=== PATIENT | female | born 1950 | race Asian ===

== ENCOUNTER → 2020-05-23 09:11 | Outpatient (BNVA) | payer MEDICARE, SELFPAY ==
--- NOTE | 2020-06-06 10:08 | P.EN_ITS ---
Event Note Date of Service: 06/06/20 Event Note: talked to patient about her CT scan - note of hernia with bowel lo ops she says she cannot have her surgery until September of this year because of work she says she will schedule for an office visit in August to discuss the procedure
== END ==
PROVIDERS: PCP Internal Medicine; Visit Provider Surgery
DX: K43.9 Ventral hernia without obstruction or gangrene (principal)
CPT/HCPCS: 99202

== ENCOUNTER 2020-06-04 08:16 | Outpatient (REF) | payer MEDICARE, SELFPAY ==
--- NOTE | 2020-06-04 08:18 | CT_ITS ---
EXAMINATION: CT ABDOMEN AND PELVIS WITHOUT CONTRAST CLINICAL INFORMATION: Omental hernia without obstruction or gangrene. COMPARISON: CT abdomen without IV contrast 08/18/2011. TECHNIQUE: Multidetector volumetric imaging was performed from the superior aspect of the liver through the pubic symphysis. Sagittal and coronal reformatted images were obtained on the technologist's workstation. This CT examination was performed using dose optimization techniques as appropriate, variously including the following: *Automated exposure control *Adjustment of mA and/or kV according to patient size (this includes techniques or standardized protocols for targeted exams where dose is matched to indication/reason for exam; i.e. extremities or head) *Use of iterative reconstruction technique DLP: 587 mGy-cm. FINDINGS: LUNG BASES: Minimal atelectatic changes seen in the right middle lobe. The lung bases are clear. The heart size is normal. LIVER, GALLBLADDER, AND BILIARY TREE: The liver is normal in size, shape, and attenuation. No focal hepatic lesion or biliary ductal dilatation is present. The gallbladder is unremarkable with no evidence of radiopaque gallstones, gallbladder wall thickening, or obvious pericholecystic inflammatory changes. PANCREAS: Unremarkable. SPLEEN: Unremarkable. ADRENAL GLANDS: Unremarkable. KIDNEYS AND URETERS: The kidneys are normal in size, shape, and attenuation. No hydronephrosis, hydroureter, or calculi seen. There is bilateral perinephric stranding. BLADDER: Unremarkable. GASTROINTESTINAL TRACT: There is moderate scattered stool seen throughout the colon without significant distention. The small bowel loops are normal caliber. Appendix is visualized and is normal caliber. No inflammatory changes seen in the abdomen. The stomach is distended with recently ingested food prior. ABDOMINAL WALL: There is a large ventral epigastric hernia with a loop of transverse colon and peritoneal fat within. The neck is 7.12 cm wide. LYMPH NODES: Normal. VASCULAR: Unremarkable. PELVIC VISCERA: Unremarkable. OSSEOUS STRUCTURES: Unremarkable. CT/CT abdomen pelvis wo con IMPRESSION: Large ventral epigastric abdominal wall hernia with a loop of transverse colon and peritoneal fat within. No obstruction. No change in the ventral hernia since 08/26/2011 CT abdomen exam. The rest of the abdominal ultrasound is unremarkable.
== END 2020-06-04 08:17 | disposition home or self-care (01) ==
LOC: HO.CT 08:16
PROVIDERS: PCP Internal Medicine; Visit Provider Surgery
DX: K43.9 Ventral hernia without obstruction or gangrene (principal)
CPT/HCPCS: 74176

== ENCOUNTER → 2020-10-07 09:54 | Outpatient (BNVA) | payer MEDICARE, SELFPAY | PROVIDERS: PCP Internal Medicine; Visit Provider Surgery | DX: K43.9 Ventral hernia without obstruction or gangrene (principal) | CPT/HCPCS: 99212 ==

== ENCOUNTER 2020-10-25 09:51 | Inpatient (IN) | payer MEDICARE, SELFPAY ==
[2020-10-18 19:09] VITALS: BMI 31.8
--- NOTE | 2020-10-23 11:57 | HO.ANESPROP2 ---
Documented by User: Noemi Vanessa 10/23/20 11:59 HPI - Anesthesia Eval Consult details Narrative: 70yo F for Large Ventral Hernia Repair PMFSH Active Problems Active Problems: All Active Problems (Updated 10/18/20 @ 19:07 by Ning Dc RN) High BMI (Acute) Hyperlipidemia (Acute) Borderline diabetes (Acute) Ventral hernia (Acute) Hypertension (Acute) Past Medical History Medical History Borderline diabetes Diabetes High BMI Hyperlipidemia Hypertension Ventral hernia Surgical History Surgical History History of dilatation and curettage (09/2009) History of ventral hernia repair (05/2010) Social History Social History Alcohol intake: never Use of substances other than those prescribed or required for medical reasons: No Are you DNR?: No Advance Directives: Yes Advance Directives Information Provided: Yes Advance Directives on File: No (will bring copy) Advance Directives Date on File: 07/02/15 Meds Allergies Allergy/AdvReac Type Severity Reaction Status Date / Time No Known Allergies Allergy Verified 10/25/20 09:46 Home Medications Medication Instructions Recorded Confirmed Last Taken Type blood sugar diagnostic #10 ea 05/23/20 10/18/20 Unknown History blood-glucose meter #1 ea 05/23/20 10/18/20 Unknown History hydrochlorothiazide 25 mg tablet 25 mg PO DAILY 05/23/20 10/18/20 Unknown History lancets 33 gauge #100 ea 05/23/20 10/18/20 Unknown History losartan 100 mg tablet 100 mg PO DAILY 05/23/20 10/18/20 Unknown History metformin 1,000 mg tablet 1,000 mg PO BID 05/23/20 10/18/20 Unknown History pravastatin 40 mg tablet 40 mg PO DAILY 05/23/20 10/18/20 Unknown History Exam Exam Date and Time: October 23, 2020 1157 Height,Weight and Vital Signs: Height 5 ft 3 in Weight 81.647 kg Narrative Narrative: CT abdomen pelvis wo con 05/2020 IMPRESSION: Large ventral epigastric abdominal wall hernia with a loop of transverse colon and peritoneal fat within. No obstruction. No change in the ventral hernia since 08/26/2011 CT abdomen exam. Assessment and Plan Assessment Anesthesia Assessment: Chart Reviewed Documented by User: Palmira Orozco 10/25/20 09:53 PMFSH Past Medical History Medical History Borderline diabetes Diabetes High BMI Hyperlipidemia Hypertension Ventral hernia Surgical History Surgical History History of dilatation and curettage (09/2009) History of ventral hernia repair (05/2010) Social History Social History Alcohol intake: never Use of substances other than those prescribed or required for medical reasons: No Are you DNR?: No Advance Directives: Yes Advance Directives Information Provided: Yes Advance Directives on File: No (will bring copy) Advance Directives Date on File: 07/02/15 Meds Allergies Allergy/AdvReac Type Severity Reaction Status Date / Time No Known Allergies Allergy Verified 10/25/20 09:46 Home Medications Medication Instructions Recorded Confirmed Last Taken Type blood sugar diagnostic #10 ea 05/23/20 10/18/20 Unknown History blood-glucose meter #1 ea 05/23/20 10/18/20 Unknown History hydrochlorothiazide 25 mg tablet 25 mg PO DAILY 05/23/20 10/18/20 Unknown History lancets 33 gauge #100 ea 05/23/20 10/18/20 Unknown History losartan 100 mg tablet 100 mg PO DAILY 05/23/20 10/18/20 Unknown History metformin 1,000 mg tablet 1,000 mg PO BID 05/23/20 10/18/20 Unknown History pravastatin 40 mg tablet 40 mg PO DAILY 05/23/20 10/18/20 Unknown History Exam Airway Mallampati Class: II TM Dist: >3cm Neck ROM: Full
[2020-10-25] VITALS (18 sets, daily range): BP systolic 101–158; BP diastolic 60–87; PULSE 71–98; RESP 14–24; TEMP 36.4–37.1; O2SAT 90–100
--- NOTE | 2020-10-25 | ECG_ITS ---
Test Reason : DM HTN PREOP Blood Pressure : / mmHG Vent. Rate : 077 BPM Atrial Rate : 077 BPM P-R Int : 178 ms QRS Dur : 122 ms QT Int : 406 ms P-R-T Axes : 019 071 020 degrees QTc Int : 459 ms Normal sinus rhythm Right bundle branch block Abnormal ECG No previous ECGs available Referred By: Noemi Mendez Electronically Signed By:BLOSSOM BENTLEY
--- NOTE | 2020-10-25 10:03 | MHC.SHP ---
Pre-Procedural Eval Section B Chief Complaint: S/P Large Ventral Hernia Repair Allergies: Allergies Allergy/AdvReac Type Severity Reaction Status Date / Time No Known Allergies Allergy Verified 10/25/20 09:46 Plan I have reviewed the history and physical and performed a pertinent physical examination on my patient. No changes have occurred unless specified.
[2020-10-25 10:07] LABS: Hematocrit 37.5 % (37-47); Hemoglobin 12.6 g/dl (12.0-16.0); Mean Corpuscular HGB Conc 33.6 g/dl (31.0-35.0); Mean Corpuscular Hemoglobin 28.1 pg (27.0-33.0); Mean Corpuscular Volume 83.5 fL (80-98); Mean Platelet Volume 10.2 fL (9.4-12.3); Platelet Count 279 X10*3/uL (160-400); Red Blood Count 4.49 X10*6/uL (4.20-5.50); Red Cell Distribution Width 12.7 % (11.0-16.0); White Blood Count 9.3 X10*3/uL (4.8-10.8)
[2020-10-25 10:08] LABS: COVID-19 Test Negative (Negative)
[2020-10-25 10:11] LABS: Glucose, Whole Blood 146 mg/dL (60-115)
[2020-10-25] MEDS: Lactated Ringers 1,000 ML 100 ML IVCONT (10:19)
[2020-10-25 10:29] LABS: Anion Gap 14 (12-20); Blood Urea Nitrogen 11 mg/dL (9-16); Calcium 9.1 mg/dL (8.4-10.2); Carbon Dioxide 24 mmol/L (22-29); Chloride 106 mmol/L (96-108); Creatinine Clr Calc Pharmacy 69.6; Estimated Glomerular Filt Rate > 60; Glucose Fasting 145 mg/dL (60-99); Potassium 4.2 mmol/L (3.3-5.1); Sodium 140 mmol/L (135-145)
--- NOTE | 2020-10-25 10:30 | PC.NURSE ---
PER ANESTHESIA, NO LAB RESULTS NEEDED BEFORE GOING TO OR.
--- NOTE | 2020-10-25 12:05 | P.BOP_ITS ---
Brief Operative Note Date of Service: 10/25/20 Pre-op diagnosis: large ventral hernia Post-op diagnosis: same Procedure: repair of large ventral hernia with Ventrio mesh Implants: mesh Surgeon: Sanya Mai MD Anesthesia: GETA Was an Certified Physician'S Assistant used for this Procedure?: No Estimated blood loss (mL): 30 Pathology: other (hernia sac) Condition: stable Disposition: PACU
--- NOTE | 2020-10-25 12:07 | P.OP_ITS ---
Operative Note Operative Note Date of Service: 10/25/20 Narrative: Preop diagnosis: Large ventral hernia Postop diagnosis: Large ventral hernia Procedure: Repair of a large ventral hernia with Ventrio mesh Surgeon: Sanya Abdullahi sales assistant entertainment and media The patient was a 70-year-old female with a large ventral hernia. Her CAT scan had shown a large hernia with a defect measuring about over 7 cm, with bowel loops involved. She was morbidly obese and before this had plan to lose some weight prior to repair. However she was unsuccessful with doing so and because of the symptomatic hernia, she wanted to proceed with repair. She understood the technique of repair with mesh. She was aware of the risks, benefits, and alternatives She was brought to the operating room placed supine the table under general anesthesia via endotracheal tube. A surgical time-out was done. The abdomen was prepped and draped in the usual sterile fashion. I made a 7 cm incision on the skin and the midline using blade 10. This was carried down through the full- thickness of skin and subcutaneous fat using electrocautery. Please note the patient was morbidly so we e had to dissect through a thick amount of subcutaneous fat until I was able to visualize the hernia. I therefore continued to dissect the hernia sac off of the rest of the thick subcutaneous layer with a combination of blunt dissection as well as with electrocautery. I proceeded to continue dissection carefully all around the hernia until I was able to reach to fascia. I then completely the entire sac off of the thick subcutaneous layer. This allowed good exposure of the entire hernia. There was an opening on the hernia sac superiorly so I able to find the edge on this and applied a Leticia clamp. I used the fascial edges a guide to the this hernia with electrocautery as well as Metzenbaum scissors. The periodically examined the abdominal contents to make sure that there were no bowel loops near the fascial defect as we divided the sac off of this. In the anterior aspect of the hernia sac, there was note of adherent transverse colon and some small bowel loops. I had to carefully do lysis of adhesions. There was omentum stuck on the hernia sac which I had to separate as well. This part of the procedure took sometime before I was able to completely release all the bowel loops from the sac. I was able to therefore excise the hernia sac and this was sent as specimen. I applied Leticia clamps on 4 quadrants of the fascial defect. I continue to therefore define the fascial edges and examined circumferentially to make sure that there were no other significant adhesions. Inferiorly, however we had noted significant adherent omentum and some small bowel loops and I had to do careful dissection using the Metzenbaum scissors to further clear enough margins. This part of the dissection took some period of time before I was able to clear wide margins around the fascial defect in preparation for placement of the mesh. I also confirmed hemo stasis and once this was confirmed, I prepared for the placement of the mesh. I measured the fascial defect and this was about 7 cm longitudinally x 6 cm . I therefore selected a 17 x 13 cm Ventrio mesh. I positioned this flat under the fascial defect. There was note of wide overlaps around the margins. I made sure that there was no bowel loop between the mesh and the fascial. I then used the Optifix fixation device to secure the Prolene side of the mesh to the peritoneal side in 4 quadrants. This secured the mesh around the defect. Then I proceeded to apply a circumferential row of tacks with the OptiFix fixation device and a 2nd inner row, making sure that there were no significant gaps that would allow bowel loops to creep through. After this was achieved, I re- examined the area and the entire mesh appeared to be secure and flat and well positioned. I copiously irrigated and observed for hemostasis. Once hemostasis was ensured, I proceeded to then close the fascia with a running Dexon 1 stitch. I reapposed the deep subcutaneous layer with Dexon 3-0 sutures. Skin closure was achieved with skin sachin. I infiltrated the area around the incision with Marcaine 0.5% for postop analgesia. Dressings were applied and the procedure was completed The patient tolerated the procedure well. There were no complications noted. Initial and final counts of sponges and instruments were correct. Estimated blood loss was about 30 cc. The patient was extubated without difficulty and transferred to the recovery room with stable vital signs.
[2020-10-25] MEDS: fentaNYL citrate/PF 100 MCG/2 ML VIAL 50 MCG IVPUSH ×2 (12:14→12:30)
[2020-10-25] MEDS: oxyCODONE HCl Immed Release 5 MG TABLET 10 MG PO (12:43)
[2020-10-25] MEDS: Lactated Ringers 1,000 ML 60 ML IVCONT (16:08)
--- NOTE | 2020-10-25 16:09 | PM.EVENT ---
Event Note Date of Service: 10/25/20 Event Note: Seen postop She says she is ?comfortable? Appears to have good pain control Stable vital signs Abdomen soft Dressings dry Continue pain management Seems to be doing well postop Daughter Vi updated by phone
[2020-10-25] MEDS: metFORMIN HCl 1,000 MG TABLET 1000 MG PO (16:51)
[2020-10-25] MEDS: Pravastatin Sodium 40 MG TABLET PO (21:19)
[2020-10-26] VITALS (7 sets, daily range): BP systolic 129–163; BP diastolic 74–85; PULSE 89–98; RESP 16–20; TEMP 36.3–36.9; O2SAT 95–98
--- NOTE | 2020-10-26 07:07 | HO.POSTANES ---
Post Anesthesia Evaluation Post Anesthesia Evaluation Vital Signs: Vital Signs Temp Pulse Resp BP Pulse Ox 10/26/20 04:00 98.4 F 90 16 139/76 95 10/26/20 00:00 98.4 F 93 16 148/76 H 97 10/25/20 19:40 97.5 F 98 16 139/76 97 Anesthesia: General Mental Status: Awake Pain Control: Satisfactory Nausea/Vomiting: None Hydration: Adequate Anesthesia-Related Issues: No Anes. Related Issues
[2020-10-26] MEDS: hydroCHLOROthiazide 25 MG TABLET PO (08:06)
[2020-10-26] MEDS: metFORMIN HCl 1,000 MG TABLET 1000 MG PO ×2 (08:07→16:50)
[2020-10-26] MEDS: Losartan Potassium 50 MG TABLET 100 MG PO (08:07)
--- NOTE | 2020-10-26 09:23 | MHC.CM.PN ---
IMM 10/26/20, EMR REVIEWED, PT ADMITTED S/P LARGE VENTRAL HERNIA REPAIR, CM MET W/PT WHO REPORTS SHE LIVES W/HER AND HAS TWO GROWN CHILDREN WHO DO NOT LIVE AT HOME, PT HAS NO DME OTHER THAN BS SUPPLIES AND REPORTS TAKING HER BS ONCE A WK, PT ON ORAL DIABETIC MEDICATION ONLY, NO HOME SERVICES, PT VERIFIES PCP AND PHARMACY, PT REPORTS SHE COULD NOT FIND HER HCP AND WOULD LIKE TO COMPLETE A NEW ONE PRIOR TO D/C. D/C PLAN: HOME SELF CARE, [facility] FOR TRANSPORT. PCP: ROXANNE HOPKINS
--- NOTE | 2020-10-26 09:49 | PM.PNGS ---
Subjective Subjective Date of Service: 10/26/20 Interval history: feels well pain well controlled no complaints at this time Physical Exam Vital Signs: Vital Signs: Last Vital Signs Temp 97.3 F 10/26/20 08:00 Pulse 91 10/26/20 08:00 Resp 17 10/26/20 08:00 BP 129/74 10/26/20 08:00 Pulse Ox 95 10/26/20 08:00 Body Mass Index 31.8 Laboratory Results - last 24 hr 10/25/20 10/25/20 10/25/20 09:35 09:53 09:53 WBC 9.3 RBC 4.49 Hgb 12.6 Hct 37.5 MCV 83.5 MCH 28.1 MCHC 33.6 RDW 12.7 Plt Count 279 MPV 10.2 Absolute Nucleated RBC 0.000 Nucleated RBC % (a uto) 0.0 Sodium 140 Potassium 4.2 Chloride 106 Carbon Dioxide 24 Anion Gap 14 BUN 11 Creatinine 0.76 Estim Creat Clear Calc 69.6 Estimated GFR > 60 POC Glucose Fasting Glucose 145 H Calcium 9.1 COVID-19 ([facility]) Negative COVID-19 Clin Com See Note 10/25/20 09:57 WBC RBC Hgb Hct MCV MCH MCHC RDW Plt Count MPV Absolute Nucleated RBC Nucleated RBC % (a uto) Sodium Potassium Chloride Carbon Dioxide Anion Gap BUN Creatinine Estim Creat Clear Calc Estimated GFR POC Glucose 146 H Fasting Glucose Calcium COVID-19 ([facility]) COVID-19 Clin Com Const: General: comfortable and no acute distress Resp: Effort & Inspection: normal respiratory effort Cardio: Rate: regular rate GI: Other: soft, not distended, dressings dry, Palpation (GI): not firm and no guarding Progress Note: A&P Assessment and plan (1) Ventral hernia: Status: Acute Assessment and Plan: S/P repair with Ventrio mesh doing well no GI complaints dressings dry she has ambulated she says she is not ready to be discharged labs ok looks well Fall Risk Details Current Medications: Current Medications Generic Name Dose Route Start Last Admin Trade Name Freq PRN Reason Stop Dose Admin Fentanyl 50 mcg 10/25/20 09:53 10/25/20 12:30 Fentanyl Citrate/Pf 100 Mcg/2 Ml Vial IVPUSH 50 mcg Q5M PRN Administration Pain, Severe (Pain Scale 7-10) Hydrochlorothiazide 25 mg 10/26/20 09:00 10/26/20 08:06 Hydrochlorothiazide 25 Mg Tablet PO 25 mg DAILY SAÚL Administration Protocol Acetaminophen 1,000 mg in 100 mls @ 400 mls/hr 10/25/20 13:00 10/26/20 07:30 Ofirmev IV 10/28/20 07:14 Infused Q6H SAÚL Infusion Lactated Ringer's 1,000 mls @ 60 mls/hr 10/25/20 15:36 10/25/20 16:08 Lr IVCONT 60 mls/hr .[id number] SAÚL Administration Losartan Potassium 100 mg 10/26/20 09:00 10/26/20 08:07 Losartan Potassium 50 Mg Tablet PO 100 mg DAILY SAÚL Administration Protocol Metformin HCl 1,000 mg 10/25/20 17:00 10/26/20 08:07 Metformin Hcl 1,000 Mg Tablet PO 1,000 mg BIDWM SAÚL Administration Morphine Sulfate 3 mg 10/25/20 15:36 Morphine Sulfate 4 Mg/Ml Cartridge IVPUSH Q3H PRN Pain, Severe (Pain Scale 7-10) Ondansetron HCl 4 mg 10/25/20 09:53 Ondansetron Hcl 4 Mg/2 Ml Vial IVPUSH ONCE PRN Nausea and Vomiting Ondansetron HCl 4 mg 10/25/20 15:36 Ondansetron Hcl 4 Mg/2 Ml Vial IVPUSH Q8H PRN Nausea Oxycodone HCl 10 mg 10/25/20 15:36 Oxycodone Hcl Immed Release 5 Mg Tablet PO Q4H PRN Pain, Moderate (Pain Scale 4-6 Pravastatin Sodium 40 mg 10/25/20 21:00 10/25/20 21:19 Pravastatin Sodium 40 Mg Tablet PO 40 mg BEDTIME SAÚL Administration Time Spent With Patient Time: Total time spent is greater than 50% in coordination of care (as documented) at patient's floor/unit and/or counseling patient: Time with patient: 15 - 24 minutes Procedures Date of Service Date of Service: 10/26/20
[2020-10-26 11:51] LABS: Glucose, Whole Blood 202 mg/dL (60-115)
--- NOTE | 2020-10-26 14:25 | MHC.CM.PN ---
CM MET W/PT WO COMPLETE HCP, PT GIVEN ORIGINAL AND 3 COPIES, COPY UPLOADED TO [facility] AND PLACED IN CHART. HEALTH CARE AGENT: KURT LAYTON (SPOUSE) [phone] ALTERANTE: MILES ROGERS (DTR) [phone]
[2020-10-26] MEDS: oxyCODONE HCl Immed Release 5 MG TABLET PO (14:31)
[2020-10-26 16:28] LABS: Glucose, Whole Blood 153 mg/dL (60-115)
[2020-10-26 20:37] LABS: Glucose, Whole Blood 173 mg/dL (60-115)
[2020-10-26] MEDS: Pravastatin Sodium 40 MG TABLET PO (21:43)
[2020-10-27] VITALS (8 sets, daily range): BP systolic 148–168; BP diastolic 74–100; PULSE 88–102; RESP 16–20; TEMP 36.2–37.1; O2SAT 94–98
--- NOTE | 2020-10-27 07:31 | PM.PNGS ---
Subjective Subjective Date of Service: 10/27/20 Interval history: Continues to do well Good GI function Has been ambulating Physical Exam Vital Signs: Vital Signs: Last Vital Signs Temp 98 F 10/27/20 03:45 Pulse 88 10/27/20 03:45 Resp 18 10/27/20 03:45 BP 162/100 H 10/27/20 03:45 Pulse Ox 98 10/27/20 03:45 Body Mass Index 31.8 Const: General: comfortable and no acute distress Resp: Effort & Inspection: normal respiratory effort Cardio: Rhythm: regular rhythm GI: Other: Soft, incision clean and dry, not infected Progress Note: A&P Assessment and plan (1) Ventral hernia: Status: Acute Assessment and Plan: Status post repair with mesh She is doing well postop Good pain control She however states that she is not ready to be discharged today She says she will go home tomorrow Prescriptions sent to pharmacy pt given dc instructions Fall Risk Details Current Medications: Current Medications Generic Name Dose Route Start Last Admin Trade Name Freq PRN Reason Stop Dose Admin Fentanyl 50 mcg 10/25/20 09:53 10/25/20 12:30 Fentanyl Citrate/Pf 100 Mcg/2 Ml Vial IVPUSH 50 mcg Q5M PRN Administration Pain, Severe (Pain Scale 7-10) Hydrochlorothiazide 25 mg 10/26/20 09:00 10/26/20 08:06 Hydrochlorothiazide 25 Mg Tablet PO 25 mg DAILY SAÚL Administration Protocol Acetaminophen 1,000 mg in 100 mls @ 400 mls/hr 10/25/20 13:00 10/27/20 00:37 Ofirmev IV 10/28/20 07:14 Infused Q6H SAÚL Infusion Losartan Potassium 100 mg 10/26/20 09:00 10/26/20 08:07 Losartan Potassium 50 Mg Tablet PO 100 mg DAILY SAÚL Administration Protocol Metformin HCl 1,000 mg 10/25/20 17:00 10/26/20 16:50 Metformin Hcl 1,000 Mg Tablet PO 1,000 mg BIDWM SAÚL Administration Morphine Sulfate 3 mg 10/25/20 15:36 Morphine Sulfate 4 Mg/Ml Cartridge IVPUSH Q3H PRN Pain, Severe (Pain Scale 7-10) Ondansetron HCl 4 mg 10/25/20 09:53 Ondansetron Hcl 4 Mg/2 Ml Vial IVPUSH ONCE PRN Nausea and Vomiting Ondansetron HCl 4 mg 10/25/20 15:36 Ondansetron Hcl 4 Mg/2 Ml Vial IVPUSH Q8H PRN Nausea Oxycodone HCl 10 mg 10/25/20 15:36 Oxycodone Hcl Immed Release 5 Mg Tablet PO Q4H PRN Pain, Moderate (Pain Scale 4-6 Oxycodone HCl 5 mg 10/26/20 14:10 10/26/20 14:31 Oxycodone Hcl Immed Release 5 Mg Tablet PO 5 mg Q4H PRN Administration Pain, Mild (Pain Scale 1-3) Pravastatin Sodium 40 mg 10/25/20 21:00 10/26/20 21:43 Pravastatin Sodium 40 Mg Tablet PO 40 mg BEDTIME SAÚL Administration Time Spent With Patient Time: Total time spent is greater than 50% in coordination of care (as documented) at patient's floor/unit and/or counseling patient: Time with patient: 15 - 24 minutes Procedures Date of Service Date of Service: 10/27/20
[2020-10-27 07:49] LABS: Glucose, Whole Blood 148 mg/dL (60-115)
[2020-10-27] MEDS: Losartan Potassium 50 MG TABLET 100 MG PO (08:15)
[2020-10-27] MEDS: metFORMIN HCl 1,000 MG TABLET 1000 MG PO ×2 (08:16→17:05)
[2020-10-27] MEDS: hydroCHLOROthiazide 25 MG TABLET PO (08:19)
[2020-10-27] MEDS: Acetaminophen 325 MG TABLET 650 MG PO ×3 (09:05→22:07)
[2020-10-27 11:45] LABS: Glucose, Whole Blood 143 mg/dL (60-115)
[2020-10-27 16:35] LABS: Glucose, Whole Blood 129 mg/dL (60-115)
[2020-10-27] MEDS: oxyCODONE HCl Immed Release 5 MG TABLET PO (19:31)
[2020-10-27] MEDS: Docusate Sodium 100 MG CAPSULE PO (19:31)
[2020-10-27 20:33] LABS: Glucose, Whole Blood 140 mg/dL (60-115)
[2020-10-27] MEDS: Pravastatin Sodium 40 MG TABLET PO (20:53)
[2020-10-28 03:51] VITALS: BP 179/84; PULSE 94; RESP 16; TEMP 36.3; O2SAT 96
[2020-10-28] MEDS: Acetaminophen 325 MG TABLET 650 MG PO (06:35)
[2020-10-28 07:10] VITALS: BP 168/80; PULSE 89; RESP 20; TEMP 36.6; O2SAT 96
[2020-10-28 07:23] LABS: Glucose, Whole Blood 173 mg/dL (60-115)
--- NOTE | 2020-10-28 07:48 | PM.PNGS ---
Subjective Subjective Date of Service: 10/28/20 Interval history: Patient s/p hernia repair with mesh; feels improved and wants to go home today. Tolerating po without nausea or vomiting. She took a stool softener to help with BM today. Physical Exam Vital Signs: Vital Signs: Last Vital Signs Temp 97.8 F 10/28/20 07:10 Pulse 89 10/28/20 07:10 Resp 20 10/28/20 07:10 BP 168/80 H 10/28/20 07:10 Pulse Ox 96 10/28/20 07:10 Body Mass Index 31.8 Const: General: cooperative, comfortable, no acute distress, alert and awake Resp: Effort & Inspection: normal respiratory effort GI: Other: no evidence of infection Palpation (GI): Soft to palpation Skin: General skin exam: no rashes or lesions noted Extrem: General: Yes no clubbing, cyanosis or edema Progress Note: A&P Assessment and plan (1) Ventral hernia: Status: Acute Assessment and Plan: Patient is s/p repair of an ventral hernia with mesh; comfortable with only Tylenol currently. She is tolerating a regular diet without nausea and vomiting and would like to go home today. Patient will be discharged to home with follow up in the office with Dr. Mai as noted in discharge order. Fall Risk Details Current Medications: Current Medications Generic Name Dose Route Start Last Admin Trade Name Freq PRN Reason Stop Dose Admin Acetaminophen 650 mg 10/27/20 08:33 10/28/20 06:35 Acetaminophen 325 Mg Tablet PO 650 mg Q6H PRN Administration Pain, Moderate (Pain Scale 4-6 Docusate Sodium 100 mg 10/27/20 21:00 10/27/20 19:31 Docusate Sodium 100 Mg Capsule PO 100 mg BID SAÚL Administration Fentanyl 50 mcg 10/25/20 09:53 10/25/20 12:30 Fentanyl Citrate/Pf 100 Mcg/2 Ml Vial IVPUSH 50 mcg Q5M PRN Administration Pain, Severe (Pain Scale 7-10) Hydrochlorothiazide 25 mg 10/26/20 09:00 10/27/20 08:19 Hydrochlorothiazide 25 Mg Tablet PO 25 mg DAILY SAÚL Administration Protocol Losartan Potassium 100 mg 10/26/20 09:00 10/27/20 08:15 Losartan Potassium 50 Mg Tablet PO 100 mg DAILY SAÚL Administration Protocol Metformin HCl 1,000 mg 10/25/20 17:00 10/27/20 17:05 Metformin Hcl 1,000 Mg Tablet PO 1,000 mg BIDWM SAÚL Administration Morphine Sulfate 3 mg 10/25/20 15:36 Morphine Sulfate 4 Mg/Ml Cartridge IVPUSH Q3H PRN Pain, Severe (Pain Scale 7-10) Ondansetron HCl 4 mg 10/25/20 09:53 Ondansetron Hcl 4 Mg/2 Ml Vial IVPUSH ONCE PRN Nausea and Vomiting Ondansetron HCl 4 mg 10/25/20 15:36 Ondansetron Hcl 4 Mg/2 Ml Vial IVPUSH Q8H PRN Nausea Oxycodone HCl 10 mg 10/25/20 15:36 Oxycodone Hcl Immed Release 5 Mg Tablet PO Q4H PRN Pain, Moderate (Pain Scale 4-6 Oxycodone HCl 5 mg 10/26/20 14:10 10/27/20 19:31 Oxycodone Hcl Immed Release 5 Mg Tablet PO 5 mg Q4H PRN Administration Pain, Mild (Pain Scale 1-3) Pravastatin Sodium 40 mg 10/25/20 21:00 10/27/20 20:53 Pravastatin Sodium 40 Mg Tablet PO 40 mg BEDTIME SAÚL Administration Time Spent With Patient Time: Total time spent is greater than 50% in coordination of care (as documented) at patient's floor/unit and/or counseling patient: Time with patient: 15 - 24 minutes Procedures Date of Service Date of Service: 10/28/20
[2020-10-28] MEDS: hydroCHLOROthiazide 25 MG TABLET PO (07:55)
[2020-10-28] MEDS: Docusate Sodium 100 MG CAPSULE PO (07:55)
[2020-10-28] MEDS: metFORMIN HCl 1,000 MG TABLET 1000 MG PO (07:55)
[2020-10-28 07:56] VITALS: BP 168/80; PULSE 89
[2020-10-28] MEDS: Losartan Potassium 50 MG TABLET 100 MG PO (07:56)
--- NOTE | 2020-10-29 17:14 | P.DS_ITS ---
DS: Providers Provider Date of Service: 10/28/20 Date of admission: 10/25/20 09:51 Primary care physician: Jacquelyn Rosado MD DS: Diagnosis Discharge Diagnosis (1) Ventral hernia: Status: Acute Problem details: 70-year-old female who underwent repair of large ventral hernia with Ventrio mesh on 10/25/2020. She tolerated procedure well. She was admitted for postop pain management. She was started on clear liquids which she tolerated well. This was advanced to regular food on her 1st postop day. She was on morphine, Ofirmev oxycodone for pain management. She continued to do well with pain control. She had good GI functions. She was instructed to do incentive spirome try and ambulation postop. She was eventually discharged on October 28, 2020. At the time of her discharge, she had good pain control and was tolerating regular diet. DS: Medications Discharge Medications Home Medications: Home Medications Medication Instructions Recorded Confirmed blood sugar diagnostic #10 ea 05/23/20 10/18/20 blood-glucose meter #1 ea 05/23/20 10/18/20 hydrochlorothiazide 25 mg tablet 25 mg PO DAILY 05/23/20 10/18/20 lancets 33 gauge #100 ea 05/23/20 10/18/20 losartan 100 mg tablet 100 mg PO DAILY 05/23/20 10/18/20 metformin 1,000 mg tablet 1,000 mg PO BID 05/23/20 10/18/20 pravastatin 40 mg tablet 40 mg PO DAILY 05/23/20 10/18/20 Previous Rx's Medication Instructions Recorded ibuprofen 600 mg PO Q6H PRN #30 tab 10/26/20 oxycodone-acetaminophen [Percocet] 1 - 2 tab PO Q4-6H PRN #30 tab 10/26/20 DS: Summary Time Spent with Patient Time attestation: Total time spent providing and/or coordinating discharge serv ices: Discharge coordination time: Less than 30 minutes Quality: Stroke Does the patient have a stroke diagnosis?: No Physical Exam Vital Signs: Vital Signs: Last Vital Signs Temp 97.8 F 10/28/20 07:10 Pulse 89 10/28/20 07:56 Resp 20 10/28/20 07:10 BP 168/80 H 10/28/20 07:56 Pulse Ox 96 10/28/20 07:10 Body Mass Index 31.8 Const: General: comfortable and no acute distress Orientation/consciousn ess: patient oriented x3 Neck: Neck: Yes no lymphadenopathy Resp: Auscultation: clear to auscultation bilaterally Cardio: Rhythm: regular rhythm GI: Other: Incision clean and dry Palpation (GI): Soft to palpation, nontender and no guarding Neuro: General: patient oriented x3 DS: Data Data Completed and Pending Completed studies during hospitalization [Text1]: Pending at discharge 10/25/20 11:03 Surgical [PTH] Routine Discharge Plan Discharge Patient Disposition: Home, Self-Care Discharge Diagnosis: Large ventral hernia Referrals: Jacquelyn Rosado MD [Primary Care Provider] - 1 Week Sanya Mai MD [Physician] - 1 Week Discharge Medications: New oxycodone-acetaminophen [Percocet] 5-325 mg tablet 1 - 2 tab PO Q4-6H PRN (Reason: pain) Qty: 30 RF: 0 ibuprofen 600 mg tablet 600 mg PO Q6H PRN (Reason: pain) Qty: 30 RF: 0 Continued losartan 100 mg tablet 100 mg PO DAILY RF: 0 metformin 1,000 mg tablet 1,000 mg PO BID RF: 0 pravastatin 40 mg tablet 40 mg PO DAILY RF: 0 hydrochlorothiazide 25 mg tablet 25 mg PO DAILY RF: 0 (DME) lancets 33 gauge misc See Rx Instructions ea .ROUTE .MEDSUPPLY Qty: 100 RF: 0 (DME) blood sugar diagnostic Strip See Rx Instructions strip .ROUTE DAILY Qty: 10 RF: 0 (DME) blood-glucose meter Misc See Rx Instructions kit .ROUTE .MEDSUPPLY Qty: 1 RF: 0 Discharge Orders: Discharge Order (Routine); Ordered 10/28/20 Ordered By: Nando Cooley Diet: regular diet Activity on Discharge: No heavy lifting Stand Alone Forms: Patient Portal Discharge page Activity Restrictions/Additional Instructions: If the incision area is tender, you may apply an ice pack for short intervals (No more than 20 minutes on, followed by at least 20 minutes off). Do not apply heat. Do not use creams, lotions, or topical antibiotics unless instructed to do so by your surgeon. These can cause infection or allergic reaction. OK to shower No lifting more than 15 lb No strenuous activities Call the office for follow-up in 2 weeks - with Dr. Mai Call Your Doctor If: -Your temperature exceeds 101.5? F -You experience excessive pain or swelling -You have an unexpected reaction to medication -You have excessive bleeding -You experience continued vomiting/nausea -Your incision begins to separate -Your incision shows signs of infection such as increased redness, swelling, excessive pain, drainage (light blood or clear fluid is normal) or heat Care Plan Goals: Pain management No lifting allowed Blood sugar control Health Concerns: Blood sugar control Obesity Plan of Treatment: Pain management No lifting allowed Assessment: Doing well postop Discharge Date/Time: 10/28/20 10:50
== END 2020-10-28 10:50 | disposition home or self-care (01) | DRG 337 ==
LOC: HO.SSSA 12:32 → HO.S3 14:05
PROVIDERS: Nurse Practitioner; Admitting Provider Surgery; PCP Internal Medicine; Visit Provider Surgery
PROC: 0WUF0JZ Supplement Abdominal Wall with Synthetic Substitute, Open Approach (ICD-10-PCS; principal; 2020-10-25 11:00)
DX: K43.9 Ventral hernia without obstruction or gangrene (principal); K66.0 Peritoneal adhesions (postprocedural) (postinfection); I10 Essential (primary) hypertension; E78.5 Hyperlipidemia, unspecified; E66.01 Morbid (severe) obesity due to excess calories; Z68.31 Body mass index [BMI] 31.0-31.9, adult; Z79.84 Long term (current) use of oral hypoglycemic drugs; Z79.899 Other long term (current) drug therapy
CPT/HCPCS: 36415; 80048; 82947; 85027; 87635; 88302; 93005; 99024; C1781; J0131; J0690; J1100; J1170; J2250; J2405; J3010

== ENCOUNTER → 2020-11-07 09:23 | Outpatient (BNVA) | payer MEDICARE, SELFPAY | PROVIDERS: PCP Internal Medicine; Visit Provider Surgery | DX: Z48.815 Encounter for surgical aftercare following surgery on the digestive system (principal); Z87.19 Personal history of other diseases of the digestive system | CPT/HCPCS: 99212 ==

== ENCOUNTER → 2020-12-09 14:40 | Outpatient (BNVA) | payer MEDICARE, SELFPAY | PROVIDERS: PCP Internal Medicine; Visit Provider Surgery | DX: K43.9 Ventral hernia without obstruction or gangrene (principal); E11.9 Type 2 diabetes mellitus without complications | CPT/HCPCS: 99212 ==

== ENCOUNTER 2021-12-26 12:46 | Outpatient (REF) | payer MEDICARE, SELFPAY ==
--- NOTE | ~2021-12-26 | MM_ITS ---
EXAMINATION: MM SCREENING DIGITAL BREAST TOMOSYNTHESIS, BILATERAL CLINICAL INFORMATION: Screening. Asymptomatic. The lifetime risk of breast cancer based on the Tyrer-Cuzick Model is 7%. COMPARISON: Mammography: 05/03/2017, 06/27/2015, 05/18/2014 TECHNIQUE: Digital breast tomosynthesis is performed in both the craniocaudal and mediolateral oblique views along with computer-aided detection (CAD). Synthesized 2D images are generated from the tomosynthesis. FINDINGS: There are scattered areas of fibroglandular density (ACR BI-RADS breast composition Category b). There are no significant masses, abnormal calcifications, or other abnormalities. Parenchymal pattern is similar to prior studies. The axilla and skin contours are unremarkable. MM/MM tomosynthesis screening BI IMPRESSION: No mammographic evidence of malignancy. ASSESSMENT: BI-RADS 1: Negative RECOMMENDATION: Routine annual mammography screening. This patient's information was entered into a reminder system with a target due date for their next mammogram.
== END 2021-12-26 12:47 | disposition home or self-care (01) ==
LOC: HO.MAMMO 12:46
PROVIDERS: PCP Internal Medicine; Visit Provider Internal Medicine
DX: Z12.31 Encounter for screening mammogram for malignant neoplasm of breast (principal)
CPT/HCPCS: 77063; 77067

== ENCOUNTER 2024-10-19 09:39 | Outpatient (REF) | payer MEDICARE, SELFPAY | END 2024-10-19 09:40 | disposition home or self-care (01) | LOC: HO.MAMMO 09:39 | PROVIDERS: Visit Provider Internal Medicine | DX: Z12.31 Encounter for screening mammogram for malignant neoplasm of breast (principal) | CPT/HCPCS: 77063; 77067 ==

== ENCOUNTER → 2024-10-19 10:30 | Outpatient (BNV) | payer MEDICARE, SELFPAY | PROVIDERS: Visit Provider Internal Medicine | DX: Z12.31 Encounter for screening mammogram for malignant neoplasm of breast (principal) | CPT/HCPCS: 77063; 77067 ==